=== PATIENT | male | born 1980 | race Hispanic/Latino ===

== ENCOUNTER 2017-12-23 10:00 | Day surgery (SDC) | payer BC ==
[2017-12-21 17:12] LABS: BASOPHILS % (AUTO) 0.7 % (0.0-5.0); EOSINOPHILS % (AUTO) 2.6 % (0.0-8.0); HEMATOCRIT 38.3 % (42-54); LYMPHOCYTES % (AUTO) 27.2 % (21.0-51.0); MEAN CORPUSCULAR HEMOGLOBIN 27.3 pg (27.0-33.0); MEAN CORPUSCULAR HGB CONC 33.1 g/dL (32.0-36.0); MEAN CORPUSCULAR VOLUME 82.4 fL (79-99); MONOCYTES % (AUTO) 7.7 % (3.0-13.0); NEUTROPHILS % (AUTO) 61.8 % (40.0-77.0); PLATELET COUNT (AUTO) 207 K/uL (130-400); RED BLOOD CELL COUNT(AUTO) 4.65 MIL/uL (4.50-6.20); RED CELL DISTRIBUTION WIDTH 13.1 % (11.0-15.5); WHITE BLOOD COUNT (AUTO) 8.1 K/uL (4.8-10.8)
[2017-12-21 17:22] LABS: CREATININE 1.5 mg/dL (0.5-1.5); POTASSIUM 3.7 mmol/L (3.5-5.1)
[2017-12-21 17:26] VITALS: BP 138/83
[~2017-12-23] VITALS: Ht 175.3 cm; Wt 118.8 kg
[2017-12-23] VITALS (20 sets, daily range): BP systolic 84–148; BP diastolic 46–92
[~2017-12-23 10:00] MED LIST: ACET1TAB12 PO; ASPI-555 PO; CEFTRIAXONE SODIUM 1 GM IVP ONE; IBUP-2070 PO; METF-444 PO; ONDA4TAB4 PO; TAMS-1 PO
[2017-12-23] MEDS ORDERED: CEFTRIAXONE SODIUM 1 GM ONE (10:23)
[2017-12-23] MEDS ORDERED: SODIUM CHLORIDE 0.9% 1000ML 1,000 ML IV ONE (10:24)
[2017-12-23] MEDS ORDERED: [UNRECOGNIZED DRUG - OTHER] PO (10:40)
[2017-12-23] MEDS ORDERED: ACETAMINOPHEN EXTRA STRENGTH 500 MG TABLET ONE (11:37)
[2017-12-23] MEDS ORDERED: ACETAMINOPHEN EXTRA STRENGTH 500 MG TABLET PO SCH (12:00)
[2017-12-23] MEDS ORDERED: IOHEXOL-350 50ML VIAL IV ONE (12:29)
[2017-12-23] MEDS ORDERED: LIDOCAINE PF 2% 5ML ABBOJECT ONE ×2 (13:44→14:26)
[2017-12-23] MEDS ORDERED: PROPOFOL 10 MG/ML 20ML VIAL IV ONE ×2 (13:44→14:26)
[2017-12-23] MEDS ORDERED: FENTANYL CITRATE PF 50 MCG/1 ML 2ML VIAL ONE ×2 (13:44→14:26)
[2017-12-23] MEDS ORDERED: MIDAZOLAM HCL 1 MG/ML 2ML VIAL ONE (14:26)
[2017-12-23] MEDS ORDERED: DEXAMETHASONE SOD PHOSPHATE 10MG/ML 1ML VIAL ONE (14:26)
[2017-12-23] MEDS ORDERED: ONDANSETRON HCL 4 MG/2 ML VIAL ONE (14:26)
[2017-12-23] MEDS ORDERED: OPIUM/BELLADONNA ALKALOIDS 1 EACH SUPP.RECT RC ONE (16:15)
[2017-12-23] MEDS ORDERED: PHENAZOPYRIDINE HCL 200 MG TABLET ONE (16:47)
== END 2017-12-23 18:00 | disposition home or self-care (01) ==
LOC: DAH 10:00
PROVIDERS: ATTEND Urology
DX: N13.2 Hydronephrosis with renal and ureteral calculous obstruction (principal); E11.9 Type 2 diabetes mellitus without complications; Z79.84 Long term (current) use of oral hypoglycemic drugs; Z79.899 Other long term (current) drug therapy; Z98.890 Other specified postprocedural states; G47.33 Obstructive sleep apnea (adult) (pediatric)
CPT/HCPCS: 36415; 52332; 74420; 80048; 82948 ×2; 85025; A4218; A4344; A4354; A4358; A4510; A4600; A6207; C1758 ×2; C1769; C2617; J0696; J1100; J2001 ×2; J2250; J2405; J2704 ×2; J3010 ×2; J7030 ×2; Q9967

== ENCOUNTER → 2018-01-03 | Outpatient (CLI) | payer BC ==
[~2018-01-03] MED LIST changes: -ASPI-555 PO; -CEFTRIAXONE SODIUM 1 GM IVP ONE; +IOHEXOL-350 75 ML VIAL IV ONE; +[UNRECOGNIZED DRUG - OTHER] PO
== END | disposition home or self-care (01) ==
LOC: RAH 09:35
PROVIDERS: ATTEND Internal Medicine
DX: N13.1 Hydronephrosis with ureteral stricture, not elsewhere classified (principal); R10.32 Left lower quadrant pain
CPT/HCPCS: 74176; Q9967

== ENCOUNTER → 2019-01-05 | Outpatient (CLI) | payer BC ==
[~2019-01-05] MED LIST changes: -IOHEXOL-350 75 ML VIAL IV ONE
== END | disposition home or self-care (01) ==
LOC: RAH 09:02
PROVIDERS: ATTEND Urology
DX: N13.2 Hydronephrosis with renal and ureteral calculous obstruction (principal); K76.0 Fatty (change of) liver, not elsewhere classified; R16.0 Hepatomegaly, not elsewhere classified
CPT/HCPCS: 74176

== ENCOUNTER → 2023-02-08 | Outpatient (CLI) | payer BC ==
[~2023-02-08] MED LIST changes: -ACET1TAB12 PO; -TAMS-1 PO; -[UNRECOGNIZED DRUG - OTHER] PO
== END | disposition home or self-care (01) ==
LOC: RAH 14:09
PROVIDERS: ATTEND Urology
DX: N20.0 Calculus of kidney (principal); Z96.0 Presence of urogenital implants
CPT/HCPCS: 74018; 76100

== ENCOUNTER → 2023-02-15 | Outpatient (CLI) | payer BC | END | disposition home or self-care (01) | LOC: RAH 14:11 | PROVIDERS: ATTEND Urology | DX: K76.0 Fatty (change of) liver, not elsewhere classified (principal); N20.0 Calculus of kidney; N13.39 Other hydronephrosis; M47.815 Spondylosis without myelopathy or radiculopathy, thoracolumbar region; K40.90 Unilateral inguinal hernia, without obstruction or gangrene, not specified as recurrent | CPT/HCPCS: 74176 ==

== ENCOUNTER → 2023-05-16 | Outpatient (CLI) | payer BC | END | disposition home or self-care (01) | LOC: RAH 14:51 | PROVIDERS: ATTEND Urology | DX: N20.0 Calculus of kidney (principal); N13.30 Unspecified hydronephrosis | CPT/HCPCS: 74176 ==

== ENCOUNTER → 2023-11-16 | Outpatient (CLI) | payer BC | END | disposition home or self-care (01) | LOC: RAH 09:22 | PROVIDERS: ATTEND Urology | DX: N13.2 Hydronephrosis with renal and ureteral calculous obstruction (principal); Z95.9 Presence of cardiac and vascular implant and graft, unspecified | CPT/HCPCS: 74018; 76100 ==